=== PATIENT | male | born 2000 | race African-American/Black ===

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

== ENCOUNTER 2022-07-15 09:34 | Emergency (ER) | payer OTHER ==
[2022-07-15] VITALS (7 sets, daily range): BP systolic 116–154; BP diastolic 65–130
[~2022-07-15] VITALS: Ht 180.3 cm; Wt 65.0 kg
[2022-07-15 10:44] LABS: BASO% 0.7 % (0-3); EOS% 1.7 % (0-8); HEMATOCRIT 43.7 % (39.0-50.0); HEMOGLOBIN 13.7 g/dl (14.0-18.0); IMMATURE GRANULOCYTES 0.1 % (0.0-5.0); LYMPH% 16.9 % (15-41); MEAN CELL VOLUME 79.3 fL CALC (80.0-100.0); MEAN CORPUSCULAR HGB 24.9 pG CALC (26.0-32.0); MEAN CORPUSCULAR HGB CONC 31.4 g/dL CAL (32.0-36.0); MONO% 7.2 % (2-13); NEUT# 6.02 thou/uL (1.82-7.42); NEUT% 73.4 % (42-76); RED BLOOD COUNT 5.51 mill/uL (4.70-6.10); RED CELL DISTRI WIDTH 14.5 % (11.5-15.5)
[2022-07-15 10:50] LABS: ALBUMIN 4.7 g/dL (3.2-5.0); ALKALINE PHOSPHATASE 56 u/l (38-126); ANION GAP 9 (6-22 (CALC)); BILIRUBIN, TOTAL 0.7 mg/dL (0.2-1.3); BUN 11 mg/dL (8-21); BUN/CREATININE RATIO 16 (12-20 (CALC)); CARBON DIOXIDE 28 mmol/l (22-30); CHLORIDE 105 mmol/l (95-108); CREATININE 0.7 mg/dL (0.7-1.3); GFR FOR AFR.AMER. > 60 ML/MIN (>=60 (CALC)); GFR OTHER RACES > 60 ML/MIN (>=60 (CALC)); LIPASE 67 u/l (23-300); POTASSIUM 3.7 mmol/l (3.5-5.1); SGOT/AST 38 u/l (17-59); SODIUM 138 mmol/l (137-146); TOTAL PROTEIN 7.8 g/dL (6.3-8.2)
== END 2022-07-15 12:45 | disposition home or self-care (01) | DRG 563 ==
LOC: ED 09:34
PROVIDERS: Family Medicine
PROC: 2W3CX1Z Immobilization of Right Lower Arm using Splint (ICD-10-PCS; principal; 2022-07-15)
DX: S52.301A Unspecified fracture of shaft of right radius, initial encounter for closed fracture (principal); S70.02XA Contusion of left hip, initial encounter; R07.81 Pleurodynia; M25.561 Pain in right knee; V44.5XXA Car driver injured in collision with heavy transport vehicle or bus in traffic accident, initial encounter

== ENCOUNTER 2023-12-03 14:09 | Emergency (ER) | payer SELFPAY ==
[~2023-12-03] VITALS: Ht 180.3 cm; Wt 64.4 kg
[2023-12-03 15:14] VITALS: BP 126/89
[2023-12-03 15:32] VITALS: BP 126/84
[2023-12-03 15:45] VITALS: BP 127/93
[2023-12-03 16:00] VITALS: BP 116/86
[2023-12-03] MEDS ORDERED: LIDOcaine HCl 1% (Local Anesth.) 20 ML VIAL IM STA (16:06)
[2023-12-03] MEDS ORDERED: DOXY-CAPS100 MG PO (16:07)
[2023-12-03] MEDS ORDERED: METRONIDAZOLE500 MG PO (16:07)
[2023-12-03] MEDS ORDERED: cefTRIAXone SODIUM 1 GM/VIAL SDV IM ONE (16:10)
[2023-12-03 16:16] VITALS: BP 126/84
[2023-12-03 16:22] VITALS: BP 126/84
[2023-12-03 16:55] LABS: URINE BILIRUBIN - DIPSTICK Negative (NEGATIVE); URINE BLOOD DIPSTICK Negative (NEGATIVE); URINE GLUCOSE - DIPSTICK Negative (NEGATIVE); URINE KETONE Negative (NEGATIVE); URINE LEUK ESTERASE Negative (NEGATIVE); URINE NITRITE - DIPSTICK Negative (Negative); URINE PROTEIN - DIPSTICK Negative (NEG-TRACE); URINE SPECIFIC GRAVITY 1.025
[2023-12-03 16:56] LABS: URINE COLOR Yellow
== END 2023-12-03 16:20 | disposition home or self-care (01) | DRG 728 ==
LOC: ED 14:09
PROVIDERS: Nurse Practitioner
DX: A64 Unspecified sexually transmitted disease (principal)

== ENCOUNTER 2024-04-29 10:26 | Emergency (ER) | payer SELFPAY ==
[~2024-04-29] VITALS: Ht 180.3 cm; Wt 64.0 kg
[2024-04-29] VITALS (8 sets, daily range): BP systolic 117–136; BP diastolic 87–94
[~2024-04-29 10:26] MED LIST changes: +DOXY-CAPS100 MG PO; +METRONIDAZOLE500 MG PO
[2024-04-29] MEDS ORDERED: ALBUTEROL SULFATE 2.5 MG VIAL NEB ONE (11:40)
[2024-04-29] MEDS ORDERED: ASPIRIN 81 MG/TAB PO ONE (11:40)
[2024-04-29] MEDS ORDERED: methylPREDNISolone SODIUM SUCC 125 MG/2 ML SDV IV ONE (11:40)
[2024-04-29 12:15] LABS: BASO% 0.2 % (0-3); EOS% 6.3 % (0-8); HEMATOCRIT 45.2 % (39.0-50.0); HEMOGLOBIN 14.7 g/dl (14.0-18.0); IMMATURE GRANULOCYTES 0.1 % (0.0-5.0); LYMPH% 21.9 % (15-41); MEAN CELL VOLUME 77.9 fL CALC (80.0-100.0); MEAN CORPUSCULAR HGB 25.3 pG CALC (26.0-32.0); MEAN CORPUSCULAR HGB CONC 32.5 g/dL CAL (32.0-36.0); MONO% 8.8 % (2-13); NEUT# 5.59 thou/uL (1.82-7.42); NEUT% 62.7 % (42-76); RED BLOOD COUNT 5.8 mill/uL (4.70-6.10); RED CELL DISTRI WIDTH 14.4 % (11.5-15.5)
[2024-04-29 12:33] LABS: ALBUMIN 4.7 g/dL (3.2-5.0); ALKALINE PHOSPHATASE 69 u/l (38-126); BUN 17 mg/dL (9-20); BUN/CREATININE RATIO 17 (12-20 (CALC)); CHLORIDE 107 mmol/l (95-108); ESTIMATED GFR 110 ML/MIN (>=90 (CALC)); SGOT/AST 30 u/l (17-59); SODIUM 141 mmol/l (137-146); TOTAL PROTEIN 8.1 g/dL (6.3-8.2)
[2024-04-29 12:37] LABS: ANION GAP 17 (6-22 (CALC)); CARBON DIOXIDE 22 mmol/l (22-30); POTASSIUM 4.6 mmol/l (3.5-5.1)
[2024-04-29] MEDS ORDERED: PREDNISONE20 MG PO (13:23)
[2024-04-29] MEDS ORDERED: ALBUTEROL SUL0.083 % IN (13:23)
== END 2024-04-29 13:34 | disposition home or self-care (01) | DRG 203 ==
LOC: ED 10:26
PROVIDERS: Emergency Medicine
DX: J45.901 Unspecified asthma with (acute) exacerbation (principal); Z72.0 Tobacco use; R07.9 Chest pain, unspecified